=== PATIENT | male | born 1975 | race Caucasian/White ===

== ENCOUNTER 2016-10-08 20:20 | Emergency (ER) | payer BC, MEDICAID ==
[2016-10-08] MEDS ORDERED: Ondansetron 4 MG/2 ML SDV IVPUSH ONE (20:31)
[2016-10-08] MEDS ORDERED: Sodium Chloride 0.9% 1,000 ML IV ONE ×2 (20:31)
[2016-10-08] MEDS ORDERED: Ketorolac 30 MG/ML SDV IVPUSH ONE (20:31)
[2016-10-08] MEDS ORDERED: LORazepam 2 MG/ML MDV IVPUSH ONE (20:31)
[2016-10-08 21:15] LABS: CHLORIDE,CL 107 mmol/L (98-110); SODIUM,NA 140 mmol/L (136-146)
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
[2016-10-08 22:17] VITALS: BP 130/80
--- NOTE | 2016-10-09 08:14 | CT ---
EXAM DATE: 10/08/16 PATIENT'S AGE: 40 Patient: LIZETH QUINTERO Facility: [place], [place] Site . Site : [id number] Study: CT Head [id number]/[id number] 9:12:53 PM Ordering Physician: Doctor Allison Final Report: INDICATION: Severe headache, onset 3 days ago. Sensitivity to light. TECHNIQUE: CT head without i.v. contrast. COMPARISON: None FINDINGS: CSF spaces: Within normal limits for age. Brain parenchyma: The brain parenchyma is normal in appearance with preservation of the landaverde-white differentiation. No sign of mass, hemorrhage, or midline shift seen. Skull base and calvarium: Near complete opacification of the right sphenoid sinus. Minimal mucosal thickening involving the left maxillary sinus. The mastoid air cells are clear. The visualized orbits are grossly unremarkable. No skull fractures are seen. IMPRESSION: 1. No acute intracranial abnormality or mass effect. 2. Right sphenoid and left maxillary sinus disease. Dictated by Mihir Huang MD @ 10/08/2016 9:27:28 PM Dictated by: Mihir Huang MD @ 10/08/2016 21:27:34 (Electronic Signature) Report Signed by Proxy. REINALDO
== END 2016-10-08 22:10 | disposition home or self-care (01) ==
LOC: MW.ED 20:20
DX: G44.209 Tension-type headache, unspecified, not intractable (principal); J32.9 Chronic sinusitis, unspecified; F17.210 Nicotine dependence, cigarettes, uncomplicated
CPT/HCPCS: 36415; 70450; 80053; 85025; 96361; 96374; 96375; 99284; J1885; J2060; J2405; J7040

== ENCOUNTER 2019-08-17 23:57 | Emergency (ER) | payer BC, MEDICAID ==
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
[2019-08-18] MEDS ORDERED: Tetracaine HCl/PF 0.5% 4 ML Bottle ONE (01:10)
[2019-08-18] MEDS ORDERED: Tetracaine HCl/PF 0.5% 4 ML Bottle EYELF STA (01:14)
[2019-08-18 01:24] VITALS: BP 152/90; PULSE 92
[2019-08-18] MEDS ORDERED: diphenhydrAMINE 25 MG Cap PO ONE (01:33)
[2019-08-18] MEDS ORDERED: Doxycycline 100 MG Cap PO ONE (01:34)
== END 2019-08-18 01:40 | disposition home or self-care (01) ==
LOC: MW.ED 23:57
DX: H00.035 Abscess of left lower eyelid (principal); F17.210 Nicotine dependence, cigarettes, uncomplicated
CPT/HCPCS: 70486; 99283; A9270